=== PATIENT | male | born 1970 | race African-American/Black ===

== ENCOUNTER 2017-03-03 15:09 | Emergency (ER) | payer MEDICAID ==
[~2017-03-03] VITALS: Ht 170.2 cm; Wt 72.6 kg
[~2017-03-03 15:09] MED LIST: ATIVAN0.5 MG ORAL; BACTRIM DS TAB1 EAC1 ORAL; IBUPROFEN600 MG ORAL; NORCO 5-325 TA1 EACH ORAL; NORVIR100 MG ORAL; REYATAZ150 MG ORAL; TRUVADA 200 MG1 EAC1 ORAL; ZOFRAN4 MG ORAL
[2017-03-03 15:30] VITALS: BP 141/87
--- NOTE | 2017-03-03 15:33 | Emergency Room Report ---
History of Present Illness General Chief Complaint: Neck Pain Source: Patient Present Illness HPI 46 YO Male presents to the ED C/O 05/15 in severity right neck cramping since this am, with swelling. pt. denies strenuous activity, denies trauma or fall. denies numbness or tingling in the upper extremity, denies ROSEN, or visual changes. pt. states he has mild cramping yesterday in the same location which resolved, but upon awakening this AM pt. had moderate to severe right sided posterior neck spasms. pt. states exacerbated with turning head towards the affected side. Denies numbness tingling or loss of sensation or gross motor movements of the extremities, incontinence of bowel or bladder. Denies CP, Palpitations, LOC, AMS, dizziness, Changes in Vision, Sensation, paresthesias, or a sudden severe headache. Allergies: Coded Allergies: LEVOFLOXACIN (Verified Allergy, Unknown, 08/15/15) Patient History Past Medical History: see triage record Past Surgical History: none Pertinent Family History: none Reviewed Nursing Documentation: PMH: Agreed, PSxH: Agreed Nursing Documentation-PMH Past Medical History: No History, Except For Hx Hypertension: No Review of Systems All Other Systems: negative except mentioned in HPI Physical Exam Vital Signs Date Time Temp Pulse Resp B/P Pulse Ox O2 Delivery O2 Flow Rate FiO2 03/03/17 15:14 97.3 90 18 141/87 98 Room Air Sp02 EP Interpretation: reviewed, normal General Appearance: no apparent distress, alert, GCS 15, non-toxic Head: normocephalic, atraumatic Eyes: bilateral eye PERRL, bilateral eye normal inspection ENT: hearing grossly normal, normal pharynx, no angioedema, normal voice, TMs + canals normal Neck: full range of motion, no bony tend, supple/symm/no masses, tender lateral - Right lateral cervical paraspinal ttp, and swelling noted. no palpable lymph nodes, no fluctuance. no increased in temperature. Respiratory: lungs clear, normal breath sounds, speaking full sentences Cardiovascular #1: regular rate, rhythm, no edema Rectal: deferred Musculoskeletal: back normal, gait/station normal, normal range of motion, tender - right cervical paraspinal ttp, some swelling noted, no erythema, no palpable lymphnodes. Neurologic: alert, oriented x3, responsive, motor strength/tone normal, sensory intact, cerebellar normal, normal gait, speech normal, other - equal metal box maker strength. no facial droop, no motor weakness Psychiatric: judgement/insight normal, memory normal, mood/affect normal Skin: normal color, no rash, warm/dry, well hydrated Medical Decision Making PA Attestation Dr. lane is my supervising Physician whom patient management has been discussed with. Diagnostic Impression: Primary Impression: Spasm of cervical paraspinous muscle ER Course Pt. presents to the ED c/o right sided neck pain described as 10/10 in severity and characterized as localized tightness and spasms on the right posterior neck. denies appreciable injury or trauma Ddx considered but are not limited to Fracture, dislocation, contusion, epidural abscess, Sprain/Strain/Spasm, vertebral artery dissection. Vital signs: are WNL, pt. is afebrile H&PE are most consistent with muscle spasm, no evidence of infection, no associated acute onset ROSEN. no focal neurological deficits noted on PE. ORDERS: none required at this time. ED INTERVENTIONS: -350mg Soma -60mg Toradol IM DISCHARGE: At this time pt. is stable for d/c to home. Will provide printed patient care instructions, and any necessary prescriptions. Care plan and follow up instructions have been discussed with the patient prior to discharge. Last Vital Signs Date Time Temp Pulse Resp B/P Pulse Ox O2 Delivery O2 Flow Rate FiO2 03/03/17 15:14 97.3 90 18 141/87 98 Room Air Disposition: HOME, SELF-CARE Condition: Serious Scripts Cyclobenzaprine Hcl* (FLEXERIL*) 10 Mg Tablet 10 MG ORAL THREE TIMES A DAY for 7 Days, #21 TAB Prov: Ilana Em P.Rip 03/03/17 Ibuprofen* (MOTRIN*) 600 Mg Tablet 600 MG ORAL THREE TIMES A DAY, #30 TAB 0 Refills Prov: Ilana Em P.Zuly. 03/03/17 Patient Instructions: Cervical Sprain, [id number], Muscle Cramps and Spasms, [id number] Additional Instructions: Take medications as directed. Follow up with a Primary Care Provider in 3-5 days, even if your symptoms have resolved. --Please review list of primary care clinics, if you do not already have a primary care provider Return sooner to ED if new symptoms occur, or current symptoms become worse. Do not drink alcohol, drive, or operate heavy machinery while taking Muscle relaxer as this may cause drowsiness. - Please note that this Emergency Department Report was dictated using [employer] fruit inspector technology software, occasionally this can lead to erroneous entry secondary to interpretation by the dictation equipment. Ilana Em Mar 03, 2017 15:33
[2017-03-03] MEDS ORDERED: Ketorolac 60mg Inj IM ONE (15:45)
[2017-03-03] MEDS ORDERED: IBUPROFEN600 MG ORAL (15:56)
[2017-03-03] MEDS ORDERED: CYCLOBENZAPRINE10 MG ORAL (15:56)
[2017-03-03 16:04] VITALS: BP 141/87
== END 2017-03-03 16:01 | disposition home or self-care (01) ==
LOC: EMR 15:54
DX: M62.838 Other muscle spasm (principal); Z88.1 Allergy status to other antibiotic agents
CPT/HCPCS: 96372; 99284

== ENCOUNTER 2017-12-19 15:44 | Emergency (ER) | payer MEDICAID ==
[~2017-12-19] VITALS: Ht 177.8 cm; Wt 72.6 kg
[~2017-12-19 15:44] MED LIST changes: +CYCLOBENZAPRINE10 MG ORAL
[2017-12-19 15:58] VITALS: BP 115/79
[2017-12-19] MEDS ORDERED: TYLENOL EXTRA500 MG ORAL (16:11)
[2017-12-19] MEDS ORDERED: BENADRYL25 MG ORAL (16:11)
--- NOTE | 2017-12-19 16:12 | Emergency Room Report ---
History of Present Illness General Chief Complaint: Skin Rash/Abscess Source: Patient, Medical Record Present Illness HPI 47-year-old male patient presents to ER complaining of possible spider bite on the right side of his head. Patient reports that he did not see a spider but thinks it was some sort of bug bite. Patient denies nausea, vomiting. Patient reports pruritus and pain at site of swelling. Patient denies fever, chest pain , shortness of breath. Patient reports that he took Tylenol 4 hours ago for pain, is on taken any medications since that time. reports history of HIV, viral load currently undetectable, taking medications.. Allergies: Coded Allergies: LEVOFLOXACIN (Verified Allergy, Unknown, 08/15/15) Patient History Past Medical History: see triage record Reviewed Nursing Documentation: PMH: Agreed; PSxH: Agreed Nursing Documentation-PMH Past Medical History: No History, Except For Hx Hypertension: No Review of Systems All Other Systems: negative except mentioned in HPI Physical Exam Vital Signs Date Time Temp Pulse Resp B/P (MAP) Pulse Ox O2 Delivery O2 Flow Rate FiO2 12/19/17 15:49 97.8 90 18 115/79 99 Room Air 97.9 Sp02 EP Interpretation: reviewed, normal General Appearance: well appearing, no apparent distress, alert, GCS 15, non- toxic Head: normocephalic, atraumatic Eyes: bilateral eye normal inspection, bilateral eye PERRL ENT: hearing grossly normal, normal pharynx, no angioedema, normal voice, TMs + canals normal, uvula midline, moist mucus membranes Neck: full range of motion Respiratory: lungs clear, normal breath sounds, no rhonchi, no respiratory distress, no accessory muscle use, no wheezing, speaking full sentences Cardiovascular #1: regular rate, rhythm, no edema Musculoskeletal: back normal, digits/nails normal, gait/station normal, normal range of motion, non-tender Neurologic: alert, oriented x3, responsive, motor strength/tone normal, sensory intact Psychiatric: mood/affect normal Skin: other - right evangelical: 4cm x 5cm area of edema, mild erythema, mildly elevated, no active drainage, no bleeding, no pus Medical Decision Making PA Attestation Dr. Mercedes is my supervising Physician whom patient management has been discussed with. Diagnostic Impression: Primary Impression: Bug bite ER Course Pt. presents to the ED c/o bug bite. Ddx considered but are not limited to atopic dermatitis, bug bite, urticaria, allergic reaction. Vital signs: are WNL, pt. is afebrile ordered Decadron, Benadryl, Tylenol for pain. ER COURSE: Physical exam shows a small area of swelling and erythema near right evangelical, mild elevation, no induration. No fever, vomiting, other acute symptoms. Do not believe patient requires drainage or antibiotics at this time. Follow-up with primary care provider for further management and referral as needed. ER precautions provided. Return to ER for new or worsening of symptoms. Warm compresses, Tylenol for pain symptoms. Benadryl for itching symptoms. May apply hydrocortisone cream to affected area, do not apply larger than necessary amount. Declined Rx for hydrocortisone cream, states has at home. Informed patient will not discharge home with steroids due to possible interactions with HIV medication. Follow-up with primary care provider to discuss need for oral steroid treatment. DISCHARGE: -Rx given for Benadryl for pruritis. SE may cause drowsiness. -Rx given for Tylenol -Patient instructed to apply warm compresses to affected area. At this time pt. is stable for d/c to home. Patient resting comfortably, in no acute distress, nontoxic appearing. Care plan and follow up instructions have been discussed with the patient prior to discharge. Patient provided with printed patient care instructions, and any necessary prescriptions. Patient instructed to follow-up with primary care provider in 3 - 5 days. Patient questions asked and answered. Patient reports understanding and agreement to treatment plan. ER precautions given. Patient instructed to return to ER immediately for any new or worsening of symptoms including but not limited to increasing SOB, persistent fever. - Please note that this Emergency Department Report was dictated using [employer] corporate technology software, occasionally this can lead to erroneous entry secondary to interpretation by the dictation equipment. Last Vital Signs Date Time Temp Pulse Resp B/P (MAP) Pulse Ox O2 Delivery O2 Flow Rate FiO2 12/19/17 15:58 97.9 18 115/79 99 Room Air 97.9 12/19/17 15:49 90 Disposition: HOME, SELF-CARE Condition: Stable Scripts Diphenhydramine Hcl* (BENADRYL*) 25 Mg Capsule 25 MG ORAL Q6H PRN for Itching, #30 CAP Prov: Reji Goetz 12/19/17 Acetaminophen* (TYLENOL EXTRA STRENGTH*) 500 Mg Tablet 500 MG ORAL Q8H PRN for Prn Headache/Temp > 101, #30 TAB 0 Refills Prov: Reji Goetz 12/19/17 Patient Instructions: Insect Bite, [id number] Additional Instructions: Followup with primary care provider in 3 -5 days. Discuss referral to Derm as needed. Apply warm compresses. Take medications as directed. Patient questions asked and answered. ER precautions given, patient instructed to return to ER immediately for any new or worsening of symptoms including but not limited to worsening of swelling , drainage, fever, chest pain, SOB, intractable vomiting. Reji Goetz December 19, 2017 16:12
[2017-12-19] MEDS ORDERED: Acetaminophen 500mg (ES) tab ORAL ONE (16:15)
[2017-12-19] MEDS ORDERED: Dexamethasone 4mg/ml vial IM ONE (16:15)
[2017-12-19 16:45] VITALS: BP 115/79
== END 2017-12-19 17:11 | disposition home or self-care (01) ==
LOC: EMR 16:12
DX: S00.86XA Insect bite (nonvenomous) of other part of head, initial encounter (principal); W57.XXXA Bitten or stung by nonvenomous insect and other nonvenomous arthropods, initial encounter; Y92.9 Unspecified place or not applicable; R21 Rash and other nonspecific skin eruption; Z88.8 Allergy status to other drugs, medicaments and biological substances
CPT/HCPCS: 96372; 99284; J1100